=== PATIENT | female | born 1935 | race Caucasian/White ===

== ENCOUNTER → 2019-03-27 | Outpatient (CLI) | payer MEDICARE ==
--- NOTE | 2019-03-27 09:46 | US ---
EXAMINATION TYPE: US carotid duplex BILAT DATE OF EXAM: 03/27/2019 COMPARISON: NONE CLINICAL HISTORY: R09.89 carotid bruit. EXAM MEASUREMENTS: RIGHT: Peak Systolic Velocity (PSV) cm/sec ----- Right CCA: 62.2 ----- Right ICA: 106.0 ----- Right ECA: 69.1 ICA/CCA ratio: 1.7 RIGHT: End Diastole cm/sec ----- Right CCA: 11.7 ----- Right ICA: 22.7 ----- Right ECA: 0.0 LEFT: Peak Systolic Velocity (PSV) cm/sec ----- Left CCA: 68.6 ----- Left ICA: 66.7 ----- Left ECA: 59.5 ICA/CCA ratio: 1.0 LEFT: End Diastole cm/sec ----- Left CCA: 12.7 ----- Left ICA: 16.5 ----- Left ECA: 0.0 VERTEBRALS (direction of flow): Right Vertebral: Antegrade Left Vertebral: Antegrade Rhythm: Normal Moderate atherosclerotic changes with no significant velocity increases seen bilaterally. IMPRESSION: Moderate degree of grayscale atheromatous plaquing with no sonographically evident hemody namically significant stenosis within either visualized carotid arterial system. Criteria for Assigning % of Stenosis / Diameter reduction (Estimation based on the indirect measurements of the internal carotid artery velocities (ICA PSV). 1. Normal (no stenosis)=ICA PSV < 125 cm/s: ratio < 2.0: ICA EDV<40 cm/s. 2. Less than 50% stenosis=ICA PSV < 125 cm/s: ratio < 2.0: ICA EDV<40 cm/s. 3. 50 to 69% stenosis=ICA PSV of 125 to 230 cm/s: ration 2.0 ? 4.0: ICA EDV 40-100 cm/s. 4. Greater than 70% stenosis to near occlusion= ICA PSV > 230 cm/s: ratio > 4.0: ICA EDV > 100 cm/s. 5. Near occlusion= ICA PSV velocities may be low or undetectable: variable ratio and ICA EDV. 6. Total occlusion=unable to detect flow.
--- NOTE | 2019-03-27 10:19 | FL ---
EXAMINATION TYPE: FL barium swallow DATE OF EXAM: 03/27/2019 CLINICAL HISTORY: Dysphagia. Known hiatal hernia. TECHNIQUE: A double contrast esophagram is performed utilizing air and barium. A total of 1.32 radhika caroline of fluoroscopic time was utilized during procedure. 43 fluoroscopic images saved during the exami nation. COMPARISON: None FINDINGS: The esophagus shows abnormal motility with tertiary contractions throughout the examination . There is delayed emptying into the stomach as contrast accumulates within a small hiatal hernia. No stricture seen. No significant gastroesophageal reflux was seen during real time performance of this study. However there is moderate degree intraesophageal reflux. IMPRESSION: 1. Small hiatal hernia with accumulation of contrast in the hernia and moderate intraesophageal reflu x. 2. Abnormal tertiary contractions throughout the examination, most commonly related to presbyesophagu s.
== END | disposition home or self-care (01) ==
LOC: RADUSWWP 08:34
PROVIDERS: ATTEND Internal Medicine
DX: I65.23 Occlusion and stenosis of bilateral carotid arteries (principal); K44.9 Diaphragmatic hernia without obstruction or gangrene; K21.9 Gastro-esophageal reflux disease without esophagitis; R93.3 Abnormal findings on diagnostic imaging of other parts of digestive tract
CPT/HCPCS: 74220; 93880

== ENCOUNTER → 2020-04-20 | Outpatient (CLI) | payer MEDICARE ==
[2020-04-20 09:08] VITALS: BP 174/74; PULSE 74; RESP 18; TEMP 97.7
--- NOTE | 2020-04-20 09:17 | P.CONS ---
History of Present Illness - Chief Complaint Right shoulder pain - History of Present Illness This is a pleasant 85-year-old lady with history of right shoulder pain status post multiple surgeries on the shoulder and recently the patient started feeling pain on the right side of her neck radiating to the mid upper arm with no numbness or tingling in the upper extremities. She also denies any weakness in the upper extremities or any bowel or bladder dysfunction. The pain increases by the right shoulder. She had an MRI on the cervical spine which showed severe neural foraminal narrowing at the C4 5 and 56 levels due to facet joint hypertrophy. The patient had steroid injection on the right shoulder many years ago which helped her pain. She was seen by orthopedic surgeon who thinks that her pain at this time is due to pathology in her neck. The patient is undergoing physical therapy however she is not getting the full benefit of it because of her pain. Past Medical History Past Medical History: Asthma, Diabetes Mellitus, GERD/Reflux, Hyperlipidemia, Hypertension, Osteoarthritis (OA) Additional Past Medical History / Comment(s): HX VERTIGO. Bursitis right shoulder. Hx concussion. Hiatal Hernia. History of Any Multi-Drug Resistant Organisms: None Reported Past Surgical History: Appendectomy, Cholecystectomy, Hernia Repair, Orthopedic Surgery, Tonsillectomy Additional Past Surgical History / Comment(s): RIGHT ROTATOR CUFF X2. LEFT SHOULDER SURGERY. RIGHT INGUINAL HERNIA. EGD with dilatation. Bilateral Cataract surgery. Past Anesthesia/Blood Transfusion Reactions: No Reported Reaction Past Psychological History: No Psychological Hx Reported Smoking Status: Never smoker Past Alcohol Use History: None Reported Past Drug Use History: None Reported - Past Family History Mother Family Medical History: Cancer Father Family Medical History: Diabetes Mellitus Medications and Allergies Home Medications Medication Instructions Recorded Confirmed Type Atorvastatin [Lipitor] 10 mg PO HS 08/07/14 04/13/20 History Metoprolol Succinate [Toprol XL] 25 mg PO HS 08/07/14 04/13/20 History glipiZIDE XL [Glucotrol Xl] 5 mg PO QAM 08/07/14 04/13/20 History Allergies Allergy/AdvReac Type Severity Reaction Status Date / Time No Known Allergies Allergy Verified 04/13/20 14:18 Physical Exam - Constitutional General appearance: average body habitus - EENT Eyes: PERRLA - Integumentary Integumentary: no calor, no cellulitis, no cyanotic, no decreased turgor, no flushed, no jaundiced, no normal, no normal turgor, no pale, no rash, no ulcer - Neurologic Neuro exam of the upper extremities showed normal and symmetrical deep tendon reflexes and normal and symmetrical muscle strength except for decreased right deltoid muscle strength due to increasing pain in the right shoulder.. 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 Positive tenderness in the right shoulder blade and around the right trapezius muscle. Decreased range of motion of the right shoulder joint to slightly less than 90 abduction. Neurologic: CNII-XII intact - Psychiatric Psychiatric: A&O x's 3, appropriate affect, intact judgment & insight Assessment and Plan Plan: This is an 85-year-old lady with the following diagnoses: Cervical neuroforaminal stenosis Cervical spondylosis without myelopathy Right shoulder osteoarthritis The patient is intact neurologically She will benefit from getting cervical epidural steroid injection under fluoroscopic guidance which hopefully will help her with physical therapy. The pain does not improve after this injection we might need to do steroid injection on the right shoulder joint. I thank you for the referral
== END | disposition home or self-care (01) ==
LOC: PNWHC3 08:35
PROVIDERS: ATTEND Anesthesiology
DX: M48.02 Spinal stenosis, cervical region (principal); M47.812 Spondylosis without myelopathy or radiculopathy, cervical region; M19.011 Primary osteoarthritis, right shoulder; E11.9 Type 2 diabetes mellitus without complications; I10 Essential (primary) hypertension; E78.5 Hyperlipidemia, unspecified; M19.90 Unspecified osteoarthritis, unspecified site; Z79.84 Long term (current) use of oral hypoglycemic drugs; Z79.899 Other long term (current) drug therapy; Z79.891 Long term (current) use of opiate analgesic
CPT/HCPCS: 99211

== ENCOUNTER 2020-05-12 06:16 | Day surgery (SDC) | payer MEDICARE ==
[2020-05-05 15:58] VITALS: BMI 28.6
[2020-05-12 06:49] VITALS: TEMP 97.9
[2020-05-12 07:03] LABS: Glucose,Whole Blood 140 mg/dL (75-99)
[2020-05-12] MEDS ORDERED: LACTATED RINGERS 1,000 ML IV ONE (07:03)
[2020-05-12] MEDS ORDERED: IOPAMIDOL M200 10 ML VIAL ONE (07:28)
[2020-05-12] MEDS ORDERED: fentaNYL (PF) 50 MCG/ML 2 ML AMP ONE (07:28)
[2020-05-12] MEDS ORDERED: DEXAMETHASONE SOD PHOSPHATE 10 MG/ML 1 ML VIAL ONE (07:28)
[2020-05-12] MEDS ORDERED: IV FLUID CONTINUATION 1,000 ML IV ONE (07:52)
[2020-05-12 07:56] VITALS: RESP 18
[2020-05-12 08:18] VITALS: BP 165/70; PULSE 58
--- NOTE | 2020-05-12 08:40 | P.PCN ---
Date of Procedure: 05/12/20 Preoperative Diagnosis: Cervical spondylosis, and cervical degenerative disc disease, Postoperative Diagnosis: Cervical spondylosis, and cervical degenerative disc disease Procedure(s) Performed: Cervical C6-C7 epidural steroid injection under fluoroscopy Anesthesia: MAC Surgeon: Addison Cuadra Estimated Blood Loss (ml): 0 IV fluids (ml): 100 Urine output (ml): 0 Pathology: none sent Condition: stable Disposition: PACU Indications for Procedure: Patient has chronic neck pain radiating to bilateral shoulder area more worse on the right side. She tried multiple conservative therapies with minimal pain relief. Came here for interventional procedure Description of Procedure: The patient was seen and examined in the holding area. The written informed consent was obtained after explaining the risks, benefits, alternatives of the procedure to the patient. The patient was brought to the procedure room and was placed in the prone position on the operating table. A pillow was placed under the upper chest. Standard anesthesia monitoring was done through out the procedure. Timeout was completed. The skin preparation was done with ChloraPrep 2 and draping was done in usual sterile fashion. Sterile technique was observed throughout the procedure. Under fluoroscopic guidance, the C6-C7 inter-laminar space was identified. 3 ml of 1% Lidocaine was injected with a 25 gauge needle to achieve adequate local anesthesia of the skin and subcutaneous tissue. A 20 gauge, 3.5 inch Tuohy type epidural needle was placed and gradually advanced up to the epidural space using loss of resistance technique and fluoroscopic guidance. Lateral, oblique fluoroscopic views confirm the needle position. No paresthesia was noted. A negative aspiration was confirmed and then 1 ml of Isovue-200 was injected. A good dye spread was seen in the epidural space and it was negative for any intrathecal, intraneural or intravascular spread. A total of 5 ml solution containing 10 mg Dexamethasone, and 4 ml preservative-free Normal Saline was injected slowly with intermittent aspiration. The needle was removed intact, area was cleaned and bandage was applied. Disposition : The patient tolerated the procedure very well. The patient was transferred to the recovery room and remained stable until discharged home. The patient was given detailed discharge instructions for bleeding, infection, increased pain at the injection site, and was advised to seek immediate medical attention should significant side effects develop. The patient will be followed up with our [facility] within 4 weeks for follow-up visit.
--- NOTE | 2020-05-12 08:45 | FL ---
EXAMINATION TYPE: FL guided pain mgmt statistic DATE OF EXAM: 05/12/2020 HISTORY: Fluoroscopy time 8 seconds of fluoroscopy provided. IMPRESSION: 1. Fluoroscopy time.
== END 2020-05-12 08:25 | disposition home or self-care (01) ==
LOC: ORPAIN 06:16
DX: G89.29 Other chronic pain (principal); M47.22 Other spondylosis with radiculopathy, cervical region; M50.10 Cervical disc disorder with radiculopathy, unspecified cervical region; E11.9 Type 2 diabetes mellitus without complications; Z98.890 Other specified postprocedural states
CPT/HCPCS: 62321; J1100; J3010; Q9966; 99152

== ENCOUNTER → 2021-10-29 | Outpatient (CLI) | payer MEDICARE ==
--- NOTE | 2021-11-11 06:41 | US ---
EXAMINATION TYPE: US arterial LE single level DATE OF EXAM: 10/29/2021 10:50 AM CLINICAL HISTORY: [id number], [id number] PAIN IN LEFT LOWER LIMB. History of hypertension and hyperlipidemia. Straightening of diabetes. Bruise left foot. Comparison: Prior study 2015 Doppler Waveforms: Right: Biphasic Left: Biphasic Pulse Volume Recording: Symmetrically diminished in the bilateral toes Ankle-Brachial Indices: Right: 1.08 Left: 1.07 Toe Brachial Indices: Right: 0.56 Left: 0.35 IMPRESSION: Normal CANDELARIO values. Mild peripheral arterial disease right foot redemonstrated. Mild to m oderate peripheral arterial disease left foot current study.
== END | disposition home or self-care (01) ==
LOC: RADUSWWP 10:00
PROVIDERS: ATTEND Internal Medicine
DX: E11.40 Type 2 diabetes mellitus with diabetic neuropathy, unspecified (principal); I73.9 Peripheral vascular disease, unspecified
CPT/HCPCS: 93922

== ENCOUNTER → 2024-02-21 | Outpatient (CLI) | payer MEDICARE ==
--- NOTE | 2024-02-21 12:38 | XR ---
EXAMINATION TYPE: XR chest 2V DATE OF EXAM: 02/21/2024 COMPARISON: NONE TECHNIQUE: PA and lateral views submitted. HISTORY: Cough FINDINGS: The lungs are clear and there is no pneumothorax, pleural effusion, or focal pneumonia. Heart size normal and no overt failure. Osseous structures demonstrate hypertrophic and degenerative changes of the spine. Atherosclerotic change aorta. Arthropathy of the shoulders. Apical pleural thickening. IMPRESSION: 1. No acute process. [facility], , 02/21/2024 12:36 PM
== END ==
LOC: RADXRMAIN 12:14
PROVIDERS: ATTEND Internal Medicine
DX: R05.9 Cough, unspecified (principal)
CPT/HCPCS: 71046